=== PATIENT | female | born 1965 | race Caucasian/White ===

== ENCOUNTER 2019-08-12 14:49 | Day surgery (SDC) | payer MEDICAID ==
[2019-08-12] MEDS ORDERED: Midazolam 1 MG/ML 2 ML SDV IV ONE (14:50)
[2019-08-12] MEDS ORDERED: Lidocaine 2% 5 ML SDV INJECT ONE (14:50)
[2019-08-12] MEDS ORDERED: Propofol 200 MG/20 ML SDV IV ONE (14:50)
[2019-08-12] MEDS ORDERED: Sodium Chloride 0.9% 10 ML Syringe FLUSH PRN (15:00)
[2019-08-12] MEDS ORDERED: Lactated Ringers 1,000 ML IV SCH (15:00)
--- NOTE | 2019-08-12 15:48 | PCM.HPR ---
H & P Addendum review - H & P Addendum Review Date of Original H & P: 08/12/19 Date Reviewed: 08/12/19 Time Reviewed: 15:15 Patient was Examined: No Changes (Consents to proceed with EGD with removeal of FB, Bx, and/or dilation)
--- NOTE | 2019-08-12 16:05 | PCM.OPNOTE ---
- General Post-Op/Procedure Note Date of Surgery/Procedure: 08/12/19 Operative Procedure(s): EGD with removal FB Findings: Food impaction Pre Op Diagnosis: Dysphasia with FB esophagus Post-Op Diagnosis: Same Anesthesia Technique: MAC Primary Surgeon: Anibal Freed Complications: None Condition: Good
--- NOTE | 2019-08-13 08:41 | OR ---
DATE OF OPERATION: 08/12/2019 SURGEON: Anibal Freed MD PREOPERATIVE DIAGNOSIS: Dysphagia with food impaction of esophagus. POSTOPERATIVE DIAGNOSES: 1. Dysphagia with food impaction of esophagus. 2. Multiple small duodenal ulcers. PROCEDURE: Esophagogastroduodenoscopy with removal of foreign body. ANESTHESIA: IV sedation. HISTORY: This 53-year-old female was seen in the emergency room in [place] and found to have impaction of food in her esophagus since last night. I spoke with Dr. Love who had her come to [facility] in [place] for upper endoscopy and removal of foreign body. The patient has had a long history of dysphagia but has never had food get stuck like this. I met with her prior to the procedure to review risks and complications, including esophageal perforation, and informed consent was obtained. DESCRIPTION OF PROCEDURE: The patient was brought to the procedure room, where she was placed on her left side and IV sedation administered. Oral bite block was placed, and the upper endoscope advanced into the esophagus under direct vision without difficulty. Vocal cords were briefly viewed and appeared normal. There was liquid and old food in the esophagus that was mostly suctioned. There was a large bolus of meat in the distal esophagus. I gently tried to push this through, and this would not budge, so I used a [employer] Net and grasped most of the food bolus and withdrew it through the mouth. Upper endoscope was then reinserted and remaining food was easily passed through the EG junction. There was a stricture that is now dilated, and the scope easily passes. There was no evidence of malignancy. The scope was then advanced into the stomach, which appears normal. Duodenum has multiple small ulcerations in the first portion without active bleeding. The second and third portion of the duodenum appeared normal. Air was removed from the stomach and the scope withdrawn. The patient tolerated the procedure well and returned to Recovery in stable condition. The patient will be started on omeprazole 20 mg daily for 1 month. I will have her follow up with Sandra Ma in clinic for ongoing medical care. /[id number] MELISSA/LORNAL CC: SANDRA MA PA-C, [place], [place]
== END 2019-08-12 17:15 | disposition home or self-care (01) ==
LOC: FB.SDS 14:49 → FB.MS 16:15 → FB.SDS 17:15
PROVIDERS: ATTEND Surgery
DX: T18.128A Food in esophagus causing other injury, initial encounter (principal); K26.9 Duodenal ulcer, unspecified as acute or chronic, without hemorrhage or perforation; K21.9 Gastro-esophageal reflux disease without esophagitis; E78.00 Pure hypercholesterolemia, unspecified; J45.909 Unspecified asthma, uncomplicated; J44.9 Chronic obstructive pulmonary disease, unspecified; M19.90 Unspecified osteoarthritis, unspecified site; M81.0 Age-related osteoporosis without current pathological fracture; F17.210 Nicotine dependence, cigarettes, uncomplicated; Z79.82 Long term (current) use of aspirin; Z79.899 Other long term (current) drug therapy; Z85.048 Personal history of other malignant neoplasm of rectum, rectosigmoid junction, and anus; Z90.49 Acquired absence of other specified parts of digestive tract
CPT/HCPCS: 43247; J2001; J2250; J2704; J7120